=== PATIENT | female | born 1940 | race Caucasian/White ===

== ENCOUNTER 2024-04-05 05:24 | Inpatient (IN) | payer MEDICARE ==
[~2024-04-05] VITALS: Ht 167.6 cm; Wt 68.0 kg
[2024-04-05] MEDS ORDERED: ONDANSETRON HCL/PF 4 MG/2 ML VIAL ONE ×3 (06:31→07:44)
[2024-04-05] MEDS ORDERED: MORPHINE SULFATE INJ 2 MG/ML DISP.SYRIN ONE ×2 (06:31→06:44)
[2024-04-05] MEDS: MORPHINE SULFATE INJ 2 MG/ML DISP.SYRIN IV ONE (06:36)
[2024-04-05] MEDS: ONDANSETRON HCL/PF - ER 4 MG/2 ML VIAL IV ONE (06:37)
[2024-04-05 06:58] LABS: INR 0.97 (0.91-1.10); PARTIAL THROMBOPLASTIN TIME 26.3 SEC (24.3-34.3); PROTHROMBIN TIME 10.3 SECS (9.2-11.1)
[2024-04-05 07:01] LABS: BASOPHILS # (AUTO) 0.1 K/uL (0.0-0.2); BASOPHILS % (AUTO) 0.6 % (0.0-2.0); EOSINOPHILS % (AUTO) 0.5 % (0.0-6.0); HEMATOCRIT 38 % (33-45); HEMOGLOBIN 12.5 g/dL (11.5-14.8); LYMPHOCYTES % (AUTO) 10.4 % (20.0-44.0); MEAN CORPUSCULAR HEMOGLOBIN 30 PG (26.0-33.0); MEAN CORPUSCULAR HGB CONC 33 g/dl (31.0-36.0); MEAN CORPUSCULAR VOLUME 91 fL (82-100); MONOCYTES # (AUTO) 0.3 K/uL (0.1-1.30); MONOCYTES % (AUTO) 3.2 % (2.0-12.0); NEUTROPHILS # (AUTO) 8.6 K/uL (1.8-8.9); NEUTROPHILS % (AUTO) 85.3 % (43.0-81.0); PLATELET COUNT (AUTO) 300 K/uL (150-450); RED BLOOD CELL COUNT(AUTO) 4.16 MIL/uL (4.0-5.2); RED CELL DISTRIBUTION WIDTH 14.6 % (11.5-15.0); WHITE BLOOD COUNT (AUTO) 10.1 K/uL (4.3-11.0)
[2024-04-05 07:17] LABS: ALANINE AMINOTRANSFERASE 17 U/L (12-78); ALBUMIN 3.3 g/dL (3.4-5.0); ALKALINE PHOSPHATASE 98 U/L (46-116); ASPARTATE AMINOTRANSFERASE 20 U/L (15-37); BILIRUBIN,DIRECT 0.1 mg/dL (0.0-0.2); BILIRUBIN,TOTAL 0.5 mg/dL (0.2-1.0); CALCIUM, SERUM 9.9 mg/dL (8.5-10.1); CARBON DIOXIDE 25 mmol/L (21-32); CHLORIDE 102 mmol/L (98-107); CREATININE 0.8 mg/dL (0.6-1.3); GLUCOSE 135 mg/dL (74-106); NT-PRO BNP 494 pg/mL (0-125); POTASSIUM 3.7 mmol/L (3.5-5.1); SODIUM SERUM 138 mmol/L (136-145); TOTAL PROTEIN, SERUM 7.2 g/dL (6.4-8.2); UREA NITROGEN, BLOOD 13 mg/dL (7-18)
[2024-04-05 07:26] LABS: LACTIC ACID 2.6 mmol/L (0.4-2.0)
[2024-04-05] MEDS ORDERED: IV NS 0.9% 250 ML IV ONE (07:35)
[2024-04-05] MEDS ORDERED: IOHEXOL-350 100 ML VIAL IV ONE (07:35)
[2024-04-05] MEDS ORDERED: CT SWABBABLE VALVE TRANS SET 1 EA INFUS.SET MC ONE (07:35)
[2024-04-05] MEDS ORDERED: methylPREDNISolone SOD SUCC 125 MG/2ML VIAL ONE (07:48)
[2024-04-05] MEDS: ONDANSETRON HCL/PF 4 MG/2 ML VIAL IV ONE (07:49)
[2024-04-05] MEDS ORDERED: diphenhydrAMINE HCL 50 MG/ML VIAL ONE (07:51)
[2024-04-05] MEDS: diphenhydrAMINE HCL 50 MG/ML VIAL IV ONE (08:01)
[2024-04-05] MEDS: methylPREDNISolone SOD SUCC 125 MG/2ML VIAL IV ONE (08:01)
[2024-04-05] MEDS ORDERED: ASPIRIN 81 MG TAB.CHEW ONE (10:03)
[2024-04-05] MEDS ORDERED: CLONIDINE HCL 0.1 MG TABLET ONE (10:03)
[2024-04-05] MEDS: CLONIDINE HCL 0.1 MG TABLET PO ONE (10:06)
[2024-04-05] MEDS: ASPIRIN 81 MG TAB.CHEW PO ONE (10:06)
[2024-04-05 11:00] VITALS: BP 114/60; TEMP 98.1; O2SAT 97
[2024-04-05] MEDS ORDERED: VIT1CAPS44 PO (12:47)
[2024-04-05] MEDS ORDERED: LEVO150T PO (12:47)
[2024-04-05] MEDS ORDERED: ASPI-1420 PO (12:47)
[2024-04-05] MEDS ORDERED: HYDROCODONE/APAP 5/325MG TABLET PO PRN (13:30)
[2024-04-05] MEDS ORDERED: MAGNESIUM HYDROXIDE 30 ML UDC PO PRN (13:30)
[2024-04-05] MEDS ORDERED: Z GUARD REMEDY 4 OZ OINT TP PRN (13:30)
[2024-04-05] MEDS ORDERED: MAG HYDROX/AL HYDROX/SIMETH 30 ML UDC PO PRN (13:30)
[2024-04-05] MEDS ORDERED: ACETAMINOPHEN 325 MG TABLET PO PRN (13:30)
[2024-04-05] MEDS ORDERED: ONDANSETRON HCL/PF 4 MG/2 ML VIAL IVP PRN (13:30)
[2024-04-05] MEDS ORDERED: ZOLPIDEM TARTRATE 5 MG TABLET PO PRN (13:30)
[2024-04-05] MEDS: ENOXAPARIN SODIUM 40 MG/0.4 ML DISP.SYRIN SQ SCH (13:48)
[2024-04-05 15:00] VITALS: BP 138/56; TEMP 97.8; O2SAT 99
[2024-04-05] MEDS: LEVOFLOXACIN 750 MG /D5W 150ML 150 ML IV SCH (16:15)
[2024-04-05 16:45] LABS: THYROID STIMULATING HORMONE 0.41 uIU/mL (0.358-3.74)
[2024-04-05 19:00] VITALS: BP 121/65; TEMP 97.7; O2SAT 98
[2024-04-05] MEDS: ASPIRIN EC 81 MG TABLET.DR PO SCH (21:06)
[2024-04-05 23:00] VITALS: BP 139/62; TEMP 97.5; O2SAT 95
[2024-04-06 04:00] VITALS: BP 120/56; TEMP 97.6; O2SAT 98
[2024-04-06 05:53] LABS: BASOPHILS % (AUTO) 0.1 % (0.0-2.0); EOSINOPHILS % (AUTO) 0.1 % (0.0-6.0); HEMATOCRIT 35 % (33-45); HEMOGLOBIN 11.4 g/dL (11.5-14.8); LYMPHOCYTES # (AUTO) 1.3 K/uL (0.8-4.8); MEAN CORPUSCULAR HEMOGLOBIN 29 PG (26.0-33.0); MEAN CORPUSCULAR HGB CONC 33 g/dl (31.0-36.0); MEAN CORPUSCULAR VOLUME 90 fL (82-100); MONOCYTES # (AUTO) 0.8 K/uL (0.1-1.30); MONOCYTES % (AUTO) 6.7 % (2.0-12.0); NEUTROPHILS # (AUTO) 9.7 K/uL (1.8-8.9); NEUTROPHILS % (AUTO) 82.1 % (43.0-81.0); PLATELET COUNT (AUTO) 307 K/uL (150-450); RED BLOOD CELL COUNT(AUTO) 3.87 MIL/uL (4.0-5.2); RED CELL DISTRIBUTION WIDTH 14.8 % (11.5-15.0); WHITE BLOOD COUNT (AUTO) 11.8 K/uL (4.3-11.0)
[2024-04-06 06:33] LABS: CALCIUM, SERUM 9.4 mg/dL (8.5-10.1); CARBON DIOXIDE 25 mmol/L (21-32); CHLORIDE 107 mmol/L (98-107); GLUCOSE 141 mg/dL (74-106); PHOSPHORUS 3.4 mg/dL (2.5-4.9); POTASSIUM 4.1 mmol/L (3.5-5.1); SODIUM SERUM 142 mmol/L (136-145); UREA NITROGEN, BLOOD 14 mg/dL (7-18)
[2024-04-06 06:48] LABS: CREATININE 0.8 mg/dL (0.6-1.3)
[2024-04-06 06:51] LABS: CHOLESTEROL 208 mg/dL (<200); HDL CHOLESTEROL 44 mg/dL (40-60); LDL 148 mg/dL (0-99); TRIGLYCERIDES 133 mg/dL (30-150)
[2024-04-06] MEDS: PANTOPRAZOLE 40 MG TABLET.DR PO SCH (07:30)
[2024-04-06 08:00] VITALS: BP 146/50; TEMP 98.1; O2SAT 100
[2024-04-06] MEDS: LEVOTHYROXINE SODIUM 75 MCG TABLET PO SCH (08:02)
[2024-04-06 12:00] VITALS: BP 166/61; TEMP 98.2; O2SAT 100
[2024-04-06 12:46] VITALS: BP 154/52
[2024-04-06] MEDS ORDERED: AMOX-430 PO (14:50)
[2024-04-07] MEDS ORDERED: LEVOFLOXACIN 750 MG /D5W 150ML 150 ML IV SCH (16:00)
== END 2024-04-06 16:40 | DRG 313 ==
LOC: ER 05:45 → TELE1 10:37
DX: R07.89 Other chest pain (principal); E78.5 Hyperlipidemia, unspecified; K80.20 Calculus of gallbladder without cholecystitis without obstruction; E03.9 Hypothyroidism, unspecified; M51.84 Other intervertebral disc disorders, thoracic region; R91.1 Solitary pulmonary nodule; I10 Essential (primary) hypertension; M54.89 Other dorsalgia; R91.8 Other nonspecific abnormal finding of lung field
CPT/HCPCS: 36415; 71045-TC; 76705-TC; 80048-TC; 80061-TC; 80076-TC; 83605-TC; 83735-TC; 83880; 84100-TC; 84439-TC; 84443-TC; 84484-TC; 85025-TC; 85730-TC; 87040-TC; 93307-TC; 93970-TC; 97110-TC; 97116-TC; 97530-TC; A4223; G0378; J1200; J1650; J1956; J2270; J2405; J2919; J7050; Q9967